=== PATIENT | male | born 1940 | race Caucasian/White ===

== ENCOUNTER 2018-09-16 22:09 | Outpatient (REF) | payer MEDICARE, OTHER, SELFPAY ==
[2018-09-16 22:34] LABS: Potassium 2.5 mmol/L (3.5-5.1)
[2018-09-16 23:08] LABS: Prothrombin Time 19.9 sec (9.3-11.0)
== END 2018-09-16 22:29 ==
LOC: LBN 22:09
PROVIDERS: PCP Family Medicine; Visit Provider Family Medicine
DX: I48.91 Unspecified atrial fibrillation (principal); Z79.01 Long term (current) use of anticoagulants; E87.6 Hypokalemia
CPT/HCPCS: 84132; 85610

== ENCOUNTER 2018-09-17 23:22 | Outpatient (REF) | payer MEDICARE, OTHER, SELFPAY ==
[2018-09-17 23:33] LABS: Anion Gap 6.8 mmol/L (3-11); BUN 57 mg/dL (7-18); CO2 33.2 mmol/L (21.0-32.0); Calcium 10.1 mg/dL (8.5-10.1); Chloride 98 mmol/L (98-107); Estimated GFR 30.78 (mL/min/1.73m2); Glucose 168 mg/dL (70-100); Sodium 138 mmol/L (136-145)
[2018-09-17 23:37] LABS: Potassium 2.8 mmol/L (3.5-5.1)
== END 2018-09-17 23:42 ==
LOC: LBN 23:22
PROVIDERS: PCP Family Medicine; Visit Provider Family Medicine
DX: I48.91 Unspecified atrial fibrillation (principal); E87.6 Hypokalemia
CPT/HCPCS: 80048

== ENCOUNTER 2018-09-18 08:46 | Outpatient (REF) | payer MEDICARE, OTHER, SELFPAY ==
[2018-09-18 09:09] LABS: Potassium 3.5 mmol/L (3.5-5.1)
[2018-09-18 17:50] LABS: Anion Gap 8.5 mmol/L (3-11); BUN 57 mg/dL (7-18); CO2 30.5 mmol/L (21.0-32.0); CREATININE 2.07 mg/dL (0.70-1.30); Calcium 10.5 mg/dL (8.5-10.1); Chloride 100 mmol/L (98-107); Estimated GFR 31.29 (mL/min/1.73m2); Glucose 166 mg/dL (70-100); Sodium 139 mmol/L (136-145)
== END 2018-09-18 09:06 ==
LOC: LBN 08:46
PROVIDERS: PCP Family Medicine; Visit Provider Family Medicine
DX: E87.6 Hypokalemia (principal); I48.91 Unspecified atrial fibrillation
CPT/HCPCS: 80048; 84132

== ENCOUNTER 2018-10-01 22:47 | Emergency (ER) | payer MEDICARE, OTHER, SELFPAY ==
[2018-10-01 22:48] VITALS: BP 121/79; PULSE 99; RESP 16; TEMP 36.6; O2SAT 97
--- NOTE | 2018-10-01 23:06 | DI.RAD_ITS ---
SYMPTOM/DIAGNOSIS: TRAUMA LEFT TIBIA AND FIBULA: There is a left total knee prosthesis which is unremarkable. No fracture is identified. The ankle shows mild to moderate degenerative changes. IMPRESSION: No acute abnormality.
--- NOTE | 2018-10-01 23:08 | W.ED.GENAD ---
Discharge Plan Disposition Patient Disposition: SNF ([facility]) [facility] Condition: Good Discharge Details Chief Complaint: Laceration Clinical Impression: Abrasion of knee, bilateral, Laceration of left lower leg, Fall at shelter Reason For Visit: [place] Primary Care Provider: Gilma Zaragoza ED Midlevel Provider: Joshua Lewis ED Provider: Provider,Temporary Home Meds and New Rx's Prescriptions: Continued metolazone 2.5 mg Tablet 2.5 mg PO .ONCE RF: 0 acetaminophen 325 mg Tablet 650 mg PO Q4H PRNRF: 0 ipratropium-albuterol 0.5 mg-3 mg(2.5 mg base)/3 mL Solution For Nebulization 3 ml INHALATION QID RF: 0 torsemide 20 mg Tablet 20 mg PO DAILY RF: 0 warfarin [Coumadin] 2.5 mg Tablet 2.5 mg PO DAILY RF: 0 amiodarone 400 mg Tablet 400 mg PO DAILY RF: 0 pantoprazole 40 mg Tablet,Delayed Release (Dr/Ec) 40 mg PO DAILY RF: 0 ferrous sulfate 325 mg (65 mg iron) Tablet 325 mg PO DAILY RF: 0 levothyroxine 100 mcg Capsule 100 mcg PO DAILY RF: 0 potassium chloride 20 mEq Tablet Extended Release 20 meq PO BID RF: 0 magnesium oxide 400 mg magnesium Tablet 400 mg PO BID RF: 0 Discharge Instructions Instructions: Laceration (ED) Additional Instructions: The laceration to the left chan needs to be left open. There is too much edema and skin fragility to attempt closure. Needs daily wound care and dressing changes. Tetanus was updated today. X-ray of the left lower extremity is negative. Observe for any signs of infection. Referrals: Gilma Zaragoza [Primary Care Provider] - Medical Decision Making Laceration to the chan that does go down to muscle fascia but does not involve the fascia or the muscle. However, given the significant edema as well as the paper thin skin closing this laceration is not an option. Simply better to allow this wound to heal from the inside out and granulate. I doubt that the skin would even hold sutures. Bilateral knee abrasions simply need wound care. He does appear to have skin tears and abrasions along the left chan as well. X-ray of the left tib-fib obtained and negative. Wound irrigated out by nursing and Xeroform dressing applied. Dry gauze dressing wrap applied. Tetanus status updated. No prophylactic antibiotics at this point. Will need wound care and dressing changes on a daily basis. Watch closely for any signs of infection. Continue diuresis and fluid management. HPI General Mode of arrival: EMS. Date/Time Provider Initiated Documentation: 10/01/18 23:06. Limitations to Documentation: no limitations. Information obtained by: patient. HPI Narrative: Patient is sent over from [facility] for evaluation of chan laceration. Patient reports that he was trying to get out of bed but was facing the bed itself. He then started to slide and ultimately slid onto the floor. Not clear what his legs got tangled up in but he sustained skin tears and lacerations to the lower extremities, left greater than right. He has a little bit of left leg pain. He denies striking his head. He had no loss of consciousness. He has no neck pain. He did not injure his upper body at all. Related Data Home Medications Medication Instructions Recorded Confirmed acetaminophen 650 mg PO Q4H PRN 10/01/18 10/01/18 amiodarone 400 mg PO DAILY 10/01/18 10/01/18 ferrous sulfate 325 mg PO DAILY 10/01/18 10/01/18 ipratropium-albuterol 3 ml INHALATION QID 10/01/18 10/01/18 levothyroxine 100 mcg PO DAILY 10/01/18 10/01/18 magnesium oxide 400 mg PO BID 10/01/18 10/01/18 metolazone 2.5 mg PO .ONCE 10/01/18 10/01/18 pantoprazole 40 mg PO DAILY 10/01/18 10/01/18 potassium chloride 20 meq PO BID 10/01/18 10/01/18 torsemide 20 mg PO DAILY 10/01/18 10/01/18 warfarin [Coumadin] 2.5 mg PO DAILY 10/01/18 10/01/18 Allergies Allergy/AdvReac Type Severity Reaction Status Date / Time No Known Allergies Allergy Unverified 10/01/18 22:57 General Stated Complaint: Laceration DEB: 3 Review of Systems Constitutional Denies fever(s), Denies headache(s) and Reports weakness ENT Denies headache(s) and Denies neck pain Cardiovascular Denies chest pain, Denies syncope, Reports leg edema and Denies dyspnea Respiratory Denies dyspnea Gastrointestinal Denies abdominal pain Musculoskeletal Denies neck pain Comments: left leg pain Integumentary/Breasts Reports wounds Neurologic Denies syncope, Denies headache(s), Denies focal weakness and Reports weakness PFS Medical History Atrial fibrillation (Chronic) CHF (congestive heart failure) (Chronic) CKD (chronic kidney disease) (Chronic) COPD (chronic obstructive pulmonary disease) (Chronic) Diabetes mellitus (Chronic) Hypothyroid (Chronic) DAVID (obstructive sleep apnea) (Chronic) Obesities, morbid (Chronic) Surgical History AICD (automatic cardioverter/defibrillator) present (Chronic) Social History shelter: Yes Smoking/Tobacco Use Status: Never Exam Const General: cooperative and no acute distress Nutritional Appearance: obese Orientation: alert and oriented x3 HENMT Head: normocephalic and atraumatic Neck Neck: full ROM and supple Back/Spine/Pelvis Cervical Spine: cervical ROM normal and No cervical spinal tenderness Skin Trauma: abrasion (bilateral knees/ left chan) and laceration (left chan 1.5 cm through dermis/subcue but not fascia/muscle) Neuro General: alert, oriented x3 and no focal motor deficits Extrem Other: Upper extremities unremarkable. Lower extremities with significant edema. No pain in ranging the hips. Neurovascularly intact distally. Good DP pulse present bilaterally. No obvious bony tenderness or deformity noted. Course Vital Signs Temperature 97.9 F 10/01/18 22:48 Pulse 99 H 10/01/18 22:48 Respiratory Rate 16 10/01/18 22:48 Blood Pressure 121/79 10/01/18 22:48 Pulse Oximetry 97 10/01/18 22:48 Temperature 97.9 F 10/01/18 22:48 Temperature Source Temporal Artery Scan 10/01/18 22:48 Pulse 99 H 10/01/18 22:48 Respiratory Rate 16 10/01/18 22:48 Respiratory Effort 10/01/18 22:48 Blood Pressure 121/79 10/01/18 22:48 Pulse Oximetry 97 10/01/18 22:48 Oxygen Delivery Method Room Air 10/01/18 22:48 Oxygen Flow Rate 0 10/01/18 22:48 Pain Level 5 10/01/18 22:48
--- NOTE | 2018-10-01 23:49 | DI.VRAD_ITS ---
EXAM: XR Left Tibia and Fibula, 2 Views EXAM DATE/TIME: 10/01/2018 11:32 PM CLINICAL HISTORY: 77 years old, male; Injury or trauma; Fall; Initial encounter; Blunt trauma; Lower leg; Left TECHNIQUE: XR Left tibia and fibula 2 views COMPARISON: No relevant prior studies available. FINDINGS: Bones/joints: Typical for age. No evidence of acute fracture. Soft tissues: Unremarkable. IMPRESSION: No acute findings. Dictated and Authenticated by: Yariel Moreau MD. Ordering:JOSE L Lewis MD
[2018-10-02 00:46] VITALS: BP 115/68; PULSE 100; RESP 16; O2SAT 100
== END 2018-10-02 00:28 | disposition skilled nursing facility (03) ==
PROVIDERS: PCP Family Medicine
DX: S81.812A Laceration without foreign body, left lower leg, initial encounter (principal); S80.211A Abrasion, right knee, initial encounter; S80.212A Abrasion, left knee, initial encounter; W06.XXXA Fall from bed, initial encounter; Y92.122 Bedroom in nursing home as the place of occurrence of the external cause; Z79.01 Long term (current) use of anticoagulants; I48.91 Unspecified atrial fibrillation; N18.9 Chronic kidney disease, unspecified; E11.22 Type 2 diabetes mellitus with diabetic chronic kidney disease; J44.9 Chronic obstructive pulmonary disease, unspecified
CPT/HCPCS: 90471; 99284; 73590